=== PATIENT | female | born 1980 | race Caucasian/White ===

== ENCOUNTER 2022-08-13 16:47 | Inpatient (IN) | payer BC ==
[2022-08-13] MEDS ORDERED: Morphine 4 MG/ML VIAL ONE ×2 (16:54→19:38)
[2022-08-13] MEDS ORDERED: Amiodarone 150 MG/3 ML VIAL ONE (16:54)
[2022-08-13] MEDS ORDERED: Ondansetron PF 4 MG/2 ML Vial ONE (16:54)
[2022-08-13] MEDS ORDERED: Magnesium 2 GM/50 ML BAG (IN WATER) ONE ×2 (16:54→20:16)
[2022-08-13] MEDS ORDERED: Amiodarone 450 MG, Admixture Fee 1 EACH in Dextrose 5% in Water 250 ML IVPB SCH (17:15)
[2022-08-13 17:33] LABS: #Basophils 0.1 thou/uL (0.0-0.2); #Eosinphils 0.1 thou/uL (0.0-0.7); #Lymphocytes 1.8 thou/uL (1.20-3.40); #Monocytes 0.9 thou/uL (0.11-0.59); #Neutrophils 7.6 thou/uL (1.40-6.50); %Basophils 0.5 % (0.0-1.0); %Eosinophils 0.6 % (0.0-10.0); %Lymphocytes 17.6 % (21.0-51.0); %Monocytes 8.8 % (0.0-10.0); %Neutrophils 72.4 % (42.0-75.0); Hemoglobin 13.3 g/dL (12.0-16.0); Mean Corpuscular HGB CONC 32.1 g/dL (32.0-36.0); Mean Corpuscular Hemoglobin 30.9 pg (27.0-31.0); Mean Corpuscular Volume 96.2 fL (78.0-98.0); Mean Platelet Volume 9.1 fL (7.4-10.4); Platelet Count 272 thou/uL (130-400); RBC Distribution Width 18.2 % (11.5-14.5); White Blood Cell (WBC) Count 10.4 thou/uL (4.8-10.8)
[2022-08-13 17:49] LABS: INR-International Normal Ratio 3.2; Prothrombin Time 33.3 sec (12.0-14.7)
[2022-08-13 17:50] LABS: PTT 79.7 sec (22.9-36.1)
[2022-08-13 17:51] LABS: ALT (SGPT) 9 U/L (8-55); AST (SGOT) 24 U/L (5-34); Albumin 4.4 g/dL (3.5-5.0); Alkaline Phosphatase 52 U/L (40-110); Anion Gap 19 mmol/L (10-20); BUN (Urea Nitrogen) 12 mg/dL (7.0-18.7); Bilirubin, Total 0.3 mg/dL (0.2-1.2); Calc. Creatinine Clearance 0 mL/min (70-130); Calcium 9.6 mg/dL (7.8-10.44); Carbon Dioxide 17 mmol/L (22-29); Chloride 102 mmol/L (98-107); Estimated GFR 76; Globulin 4.1 g/dL (2.4-3.5); Glucose 94 mg/dL (70-105); Potassium 4.4 mmol/L (3.5-5.1); Protein, Total 8.5 g/dL (6.0-8.3); Sodium 134 mmol/L (136-145)
[2022-08-13 20:45] LABS: Magnesium 2.5 mg/dL (1.6-2.6)
[2022-08-13 20:53] LABS: Troponin I 0.025 ng/mL (< 0.028)
[2022-08-13] MEDS ORDERED: Ondansetron PF 4 MG/2 ML Vial IVP PRN (21:08)
[2022-08-13] MEDS ORDERED: Acetaminophen 325 MG TAB PO PRN (21:08)
[2022-08-13 21:13] VITALS: BMI 37.5
[2022-08-13] MEDS ORDERED: Sodium Bicarb 50 MEQ/50 ML VIAL IVP SCH (21:15)
[2022-08-13] MEDS ORDERED: Lorazepam 1 MG TAB PO PRN (21:31)
[2022-08-13] MEDS ORDERED: Lorazepam 2 MG/ML VIAL IM PRN (21:31)
[2022-08-13] MEDS ORDERED: Electrolyte Replacement Protocol 1 EACH FS SCH (21:45)
[2022-08-13] MEDS: Lorazepam 1 MG TAB PO SCH (21:46)
[2022-08-13] MEDS: Thiamine HCl 200 MG/2 ML VIAL SLOW IVP SCH (21:46)
[2022-08-14] MEDS: Lorazepam 1 MG TAB PO SCH ×4 (03:39→21:07)
[2022-08-14 04:21] LABS: Anion Gap 12 mmol/L (10-20); BUN (Urea Nitrogen) 10 mg/dL (7.0-18.7); Calc. Creatinine Clearance 139 mL/min (70-130); Carbon Dioxide 22 mmol/L (22-29); Chloride 105 mmol/L (98-107); Estimated GFR 94; Glucose 86 mg/dL (70-105); Magnesium 2.6 mg/dL (1.6-2.6); Potassium 4.2 mmol/L (3.5-5.1); Sodium 135 mmol/L (136-145)
[2022-08-14 04:31] LABS: #Monocytes 0.6 thou/uL (0.11-0.59); #Neutrophils 3.3 thou/uL (1.40-6.50); %Basophils 0.2 % (0.0-1.0); %Eosinophils 0.7 % (0.0-10.0); %Lymphocytes 19.9 % (21.0-51.0); %Monocytes 12.5 % (0.0-10.0); %Neutrophils 66.7 % (42.0-75.0); Hemoglobin 11.2 g/dL (12.0-16.0); Mean Corpuscular HGB CONC 32.4 g/dL (32.0-36.0); Mean Corpuscular Hemoglobin 31.6 pg (27.0-31.0); Mean Corpuscular Volume 97.4 fL (78.0-98.0); Mean Platelet Volume 8.6 fL (7.4-10.4); Platelet Count 199 thou/uL (130-400); RBC Distribution Width 17.7 % (11.5-14.5); Red Blood Cell (RBC) Count 3.55 mill/uL (4.20-5.40); White Blood Cell (WBC) Count 4.9 thou/uL (4.8-10.8)
[2022-08-14 05:32] LABS: INR-International Normal Ratio 3.7; Prothrombin Time 37.2 sec (12.0-14.7)
[2022-08-14] MEDS: Multivit, Therapeutic 1 TAB PO SCH (07:34)
[2022-08-14] MEDS: Folic Acid 1 MG TAB PO SCH (07:34)
[2022-08-14] MEDS ORDERED: Amiodarone 200 MG TAB PO SCH (12:45)
[2022-08-14] MEDS: Amiodarone 200 MG TAB PO SCH ×2 (13:47→21:06)
[2022-08-14] MEDS ORDERED: Warfarin Sodium 5 MG TAB PO SCH (17:00)
[2022-08-14] MEDS: Thiamine HCl 200 MG/2 ML VIAL SLOW IVP SCH (21:07)
[2022-08-14] MEDS ORDERED: Lorazepam 1 MG TAB PO PRN (21:32)
[2022-08-15] MEDS: Lorazepam 1 MG TAB PO SCH ×2 (03:12→10:25)
[2022-08-15 04:18] LABS: #Eosinphils 0.1 thou/uL (0.0-0.7); #Lymphocytes 1.2 thou/uL (1.20-3.40); #Monocytes 0.5 thou/uL (0.11-0.59); #Neutrophils 3.3 thou/uL (1.40-6.50); %Basophils 0.3 % (0.0-1.0); %Eosinophils 1.1 % (0.0-10.0); %Monocytes 9.7 % (0.0-10.0); %Neutrophils 65.8 % (42.0-75.0); Hemoglobin 11.5 g/dL (12.0-16.0); Mean Corpuscular HGB CONC 31.8 g/dL (32.0-36.0); Mean Corpuscular Hemoglobin 31.5 pg (27.0-31.0); Mean Corpuscular Volume 99.1 fL (78.0-98.0); Mean Platelet Volume 8.9 fL (7.4-10.4); Platelet Count 205 thou/uL (130-400); RBC Distribution Width 17.6 % (11.5-14.5); Red Blood Cell (RBC) Count 3.65 mill/uL (4.20-5.40)
[2022-08-15 04:37] LABS: INR-International Normal Ratio 2.4; Prothrombin Time 26.9 sec (12.0-14.7)
[2022-08-15 04:49] LABS: Anion Gap 14 mmol/L (10-20); BUN (Urea Nitrogen) 12 mg/dL (7.0-18.7); Calc. Creatinine Clearance 137 mL/min (70-130); Calcium 8.7 mg/dL (7.8-10.44); Carbon Dioxide 19 mmol/L (22-29); Chloride 106 mmol/L (98-107); Estimated GFR 93; Glucose 92 mg/dL (70-105); Magnesium 2.1 mg/dL (1.6-2.6); Potassium 4.5 mmol/L (3.5-5.1); Sodium 134 mmol/L (136-145)
[2022-08-15] MEDS: Multivit, Therapeutic 1 TAB PO SCH (07:17)
[2022-08-15] MEDS: Amiodarone 200 MG TAB PO SCH (07:17)
[2022-08-15] MEDS: Folic Acid 1 MG TAB PO SCH (07:17)
[2022-08-15 07:38] VITALS: TEMP 97.6
[2022-08-15] MEDS ORDERED: Lorazepam 1 MG TAB PO PRN (21:32)
[2022-08-15] MEDS ORDERED: Lorazepam 0.5 MG TAB PO SCH (21:45)
[2022-08-16] MEDS ORDERED: FLU VACC QS2022-23(6MOS UP)/PF 60 MCG/0.5 ML SYRINGE IM ONE (09:00)
[2022-08-16] MEDS ORDERED: Thiamine 100 MG TAB PO SCH (21:00)
[2022-08-16] MEDS ORDERED: Lorazepam 0.5 MG TAB PO PRN (21:32)
== END 2022-08-15 12:32 | disposition home or self-care (01) | DRG 309 ==
LOC: ERS 16:47 → IMCU/EMU 19:56
PROVIDERS: ADMIT Internal Medicine; ATTEND Family Medicine
DX: I47.21 Torsades de pointes (principal); I42.2 Other hypertrophic cardiomyopathy; I48.0 Paroxysmal atrial fibrillation; K21.9 Gastro-esophageal reflux disease without esophagitis; F17.210 Nicotine dependence, cigarettes, uncomplicated; Z20.822 Contact with and (suspected) exposure to COVID-19; F10.10 Alcohol abuse, uncomplicated; I50.9 Heart failure, unspecified; Z90.49 Acquired absence of other specified parts of digestive tract; Z98.890 Other specified postprocedural states; Z95.1 Presence of aortocoronary bypass graft; Z79.01 Long term (current) use of anticoagulants; Z79.899 Other long term (current) drug therapy; Z95.810 Presence of automatic (implantable) cardiac defibrillator
CPT/HCPCS: 36415; 71045; 80048; 80053; 83735; 83880; 84484; 85025; 85610; 85730; 93005; 93306; J0282; J2270; J2405; J3411; J3475; J7070; U0003; U0005

== ENCOUNTER 2025-10-06 08:09 | Emergency (ER) | payer BC, SELFPAY ==
[2025-10-06 08:41] LABS: Bacteria/HPF None Seen HPF (None Seen); CAUTI Indications for Culture Immunosuppressed; Glucose, Urine (Dipstick) Normal (Negative); Leukocyte Negative Leu/uL (Negative); Protein, Urine (Dipstick) Negative (Neg-Trace); RBC/HPF 0-3 HPF (0-3); Specific Gravity, Urine 1.005 (1.002-1.036); WBC/HPF 0-3 HPF (0-3)
[2025-10-06 08:46] LABS: Urine Culture Reflex Yes Yes
[2025-10-06] MEDS ORDERED: Metoprolol Tartrate 5 MG (5 mL) VIAL ONE (08:52)
[2025-10-06 09:13] LABS: #Basophils 0.04 10x3/uL (0.0-0.2); #Eosinophils Less than 0.03 10x3/uL (0.0-0.7); #Monocytes 0.84 10x3/uL (0.11-0.59); #Neutrophils 6.86 10x3/uL (1.40-6.50); %Basophils 0.4 % (0.0-1.0); %Eosinophils 0.1 % (0.0-10.0); %Lymphocytes 15.9 % (21.0-51.0); %Monocytes 9.1 % (0.0-10.0); %Neutrophils 74.1 % (42.0-75.0); Hematocrit 38.0 % (36.0-47.0); Hemoglobin 12.5 g/dL (12.0-16.0); Mean Corpuscular Hemoglobin 28.0 pg (27.0-31.0); Mean Corpuscular Volume 85.0 fL (78.0-98.0); Platelet Count 361 10x3/uL (130-400); Red Blood Cell (RBC) Count 4.47 mill/uL (4.20-5.40); White Blood Cell (WBC) Count 9.26 10x3/uL (4.8-10.8)
[2025-10-06] MEDS ORDERED: Etomidate 40 MG (20 mL) VIAL ONE (09:20)
[2025-10-06 09:37] LABS: ALT (SGPT) 11 U/L (Less than 34); AST (SGOT) 29 U/L (11-34); Albumin 4.4 g/dL (3.1-4.5); Alkaline Phosphatase 46 U/L (40-110); Anion Gap 19 mmol/L (10-20); BUN (Urea Nitrogen) 5 mg/dL (7.0-18.7); Bilirubin, Total 0.6 mg/dL (0.3-1.2); Calc. Creatinine Clearance 0 mL/min (70-130); Calcium 10.1 mg/dL (7.8-10.44); Carbon Dioxide 20 mmol/L (22-29); Chloride 97 mmol/L (98-107); Globulin 3.5 g/dL (2.4-3.5); Glucose 97 mg/dL (70-105); Magnesium 1.8 mg/dL (1.6-2.6); Potassium 4.5 mmol/L (3.5-5.1); Sodium 131 mmol/L (136-145)
[2025-10-06] MEDS ORDERED: Acetaminophen 500 MG TAB ONE (09:57)
[2025-10-06] MEDS ORDERED: Aspirin Chewable 81 MG TAB ONE (09:57)
[2025-10-06 12:43] LABS: INR-International Normal Ratio 1.8; PTT 45.7 sec (22.9-36.1); Prothrombin Time 20.9 sec (12.0-14.7)
[2025-10-06] MEDS ORDERED: Enoxaparin 80 MG (0.8 mL) SYRINGE ONE (13:05)
== END 2025-10-06 13:13 | disposition home or self-care (01) ==
LOC: ERS 08:09
DX: I48.20 Chronic atrial fibrillation, unspecified (principal); R79.1 Abnormal coagulation profile; F17.210 Nicotine dependence, cigarettes, uncomplicated; Z95.0 Presence of cardiac pacemaker
CPT/HCPCS: 36416; 80053; 81001; 83735; 83880; 84484; 85025; 85610; 85730; 87086; 87428; 92960; 93005; 96374; 96375; J1650